=== PATIENT | female | born 1995 | race Caucasian/White ===

== ENCOUNTER 2019-01-17 20:57 | Emergency (ER) | payer OTHER ==
[~2019-01-17] VITALS: Ht 162.6 cm; Wt 59.1 kg
[2019-01-17 21:02] VITALS: BP 115/74
--- NOTE | 2019-01-17 21:06 | NUR ---
TO LOBBY, VSS.
--- NOTE | 2019-01-17 21:25 | NUR ---
PT GOING TO ULTRASOUND
[2019-01-17 21:39] LABS: BASOPHILS % (AUTO) 0.2 % (0.0-2.0); EOSINOPHILS # (AUTO) 1.1 K/uL (0-0.4); HEMATOCRIT 37.9 % (36-48); HEMOGLOBIN 12.4 g/dL (12.0-16.0); LYMPHOCYTES # (AUTO) 1.5 K/uL (2.5-16.5); LYMPHOCYTES % (AUTO) 11.7 % (20.5-51.1); MEAN CORPUSCULAR HEMOGLOBIN 31 pg (27-31); MEAN CORPUSCULAR HGB CONC 33 g/dL (33-37); MEAN CORPUSCULAR VOLUME 94.1 fL (80-94); MONOCYTES # (AUTO) 0.6 K/uL (0.8-1.0); MONOCYTES % (AUTO) 4.8 % (1.7-9.3); NEUTROPHILS # (AUTO) 9.3 K/uL (1.8-7.7); NEUTROPHILS % (AUTO) 74.3 % (42.2-75.2); PLATELET COUNT (AUTO) 269 K/uL (140-450); RED BLOOD CELL COUNT(AUTO) 4.03 MIL/uL (4.20-5.40); RED CELL DISTRIBUTION WIDTH 13.8 % (11.6-13.7); WHITE BLOOD COUNT (AUTO) 12.6 K/uL (4.8-10.8)
--- NOTE | 2019-01-17 21:46 | NUR ---
PT IN ULTRASOUND AT THIS TIME, GOING TO ER BED 2
--- NOTE | 2019-01-17 21:51 | NUR ---
PT RETURN FROM ULTRASOUND TO ER BED 2
--- NOTE | 2019-01-17 21:55 | NUR ---
PT BIB BOYFRIEND C/O OF ABD CRAMPING. PT STATES ABD CRAMPING STARTED THIS MORNING, 10/10 INTERMITTENT CRAMPING PAIN, RADIATES TO LOWER BACK. DENIES TRAUMA. PT STATES NO VAGINAL BLEEDING, OR DISCHARGE; DENIES N/V/D, SOB, CP OR LOC. BOWEL SOUNDS ACTIVE X4 QUAD. LMP: 10/31/19, PT STATES TO BE 11 WKS AND HAS ACTIVE PRENATEL CARE. PMH: DENIES RX: DENIES
[2019-01-17 22:12] LABS: APPEARANCE,URINE CLEAR (CLEAR); BILIRUBIN,URINE NEGATIVE (NEGATIVE); BLOOD, URINE NEGATIVE (NEGATIVE); LEUKOCYTE ESTERASE ,URINE NEGATIVE (NEGATIVE); NITRITE, URINE NEGATIVE (NEGATIVE); UGLUCOSE NEGATIVE (NEGATIVE)
[2019-01-17 22:23] LABS: COLOR,URINE STRAW (YELLOW)
--- NOTE | 2019-01-18 | NUR ---
Dr. Riojas evaluating patient at bedside.
[2019-01-18 00:10] VITALS: BP 118/78
--- NOTE | 2019-01-18 00:10 | NUR ---
Patient discharged with v/s stable. Written and verbal after care instructions given and explained. Patient verbalized understanding. Ambulatory with steady gait. All questions addressed prior to discharge. Advised to follow up with PMD.
== END 2019-01-18 00:10 | disposition home or self-care (01) ==
LOC: MED 20:57
DX: O20.0 Threatened abortion (principal); Z3A.11 11 weeks gestation of pregnancy; Z88.2 Allergy status to sulfonamides
CPT/HCPCS: 36415; 76815; 81002; 81025; 84702; 85025; 86900; 86901; 99284; Q0092

== ENCOUNTER 2019-03-29 08:40 | Observation (INO) | payer OTHER ==
[~2019-03-29] VITALS: Ht 162.6 cm; Wt 61.0 kg
--- NOTE | 2019-03-29 08:45 | NUR ---
PATIENT AMBULATED TO BED 7.
[2019-03-29 08:50] VITALS: BP 125/70
--- NOTE | 2019-03-29 08:50 | NUR ---
21 WKS FEMALE BIB SELF W/ CO DIARRHEA AND LOWER ABDOMINAL CRAMPING PAIN 10/ SINCE 0500 THIS MORNING. DENIES VAGINAL BLEEDING. A0 LMP 10/31/18. PATIENT POSITIONED FOR COMFORT; HOB ELEVATED; BEDRAILS UP X1; BED DOWN. ER MD MADE AWARE OF PT STATUS.
--- NOTE | 2019-03-29 08:56 | NUR ---
UA DONE, SENT TO LAB
[2019-03-29] MEDS ORDERED: NACL 0.9% 1,000 ML IV ONE (09:25)
--- NOTE | 2019-03-29 09:34 | NUR ---
IV 20 GA RT HAND, BLOOD SENT TO LAB-PT [facility]
[2019-03-29 09:46] LABS: BASOPHILS % (AUTO) 0.3 % (0.0-2.0); EOSINOPHILS % (AUTO) 11.5 % (0.0-4.0); HEMATOCRIT 34.8 % (36-48); HEMOGLOBIN 11.8 g/dL (12.0-16.0); LYMPHOCYTES # (AUTO) 1.1 K/uL (2.5-16.5); LYMPHOCYTES % (AUTO) 12.2 % (20.5-51.1); MEAN CORPUSCULAR HEMOGLOBIN 33 pg (27-31); MEAN CORPUSCULAR HGB CONC 34 g/dL (33-37); MEAN CORPUSCULAR VOLUME 96.2 fL (80-94); MONOCYTES # (AUTO) 0.6 K/uL (0.8-1.0); MONOCYTES % (AUTO) 7.1 % (1.7-9.3); NEUTROPHILS # (AUTO) 6.2 K/uL (1.8-7.7); NEUTROPHILS % (AUTO) 68.9 % (42.2-75.2); PLATELET COUNT (AUTO) 263 K/uL (140-450); RED BLOOD CELL COUNT(AUTO) 3.61 MIL/uL (4.20-5.40); RED CELL DISTRIBUTION WIDTH 13.9 % (11.6-13.7); WHITE BLOOD COUNT (AUTO) 9.1 K/uL (4.8-10.8)
[2019-03-29 09:47] LABS: BILIRUBIN,URINE NEGATIVE (NEGATIVE); BLOOD, URINE NEGATIVE (NEGATIVE); COLOR,URINE ORANGE (YELLOW); LEUKOCYTE ESTERASE ,URINE NEGATIVE (NEGATIVE); NITRITE, URINE NEGATIVE (NEGATIVE); UGLUCOSE NEGATIVE (NEGATIVE)
[2019-03-29 09:52] LABS: ANION GAP 13.8 (8-16); CARBON DIOXIDE 20.9 mmol/L (21-32); CREATININE 0.5 mg/dL (0.6-1.3); POTASSIUM 3.7 mmol/L (3.5-5.1)
[2019-03-29 09:57] LABS: TOTAL BILIRUBIN 0.2 mg/dL (0.0-1.0)
[2019-03-29 09:58] LABS: APPEARANCE,URINE SLIGHTLY HAZY (CLEAR); RBC,URINE 0-5 /HPF (0-5); WBC,URINE 0-5 /HPF (0-5)
--- NOTE | 2019-03-29 10:15 | NUR ---
PT AMB TO [facility] W/O ASST. PT ABD PAIN 2, NO VAG BLEEDING/CRAMPING AT THIS TIME. NSR W/O ECT. VVS PT STABLE.
--- NOTE | 2019-03-29 11:35 | NUR ---
Patient discharged with v/s stable. Written and verbal after care instructions given and explained. Patient alert, oriented and verbalized understanding of instructions. Wheel Chair Assisted with steady gait. All questions addressed prior to discharge. ID band removed. Patient advised to follow up with PMD.NO Rx given. Patient educated on indication of medication including possible reaction and side effects. Opportunity to ask questions provided and answered.
--- NOTE | 2019-03-29 11:37 | NUR ---
PT SENT TO L&D VIA W/C WITH ANISHA MENG. REPORT GIVEN TO L&D RN.
[2019-03-29 12:07] VITALS: BP 108/59
[2019-03-29] MEDS ORDERED: VITA1TAB44 PO (12:11)
[2019-03-29] MEDS ORDERED: PNV1TABL8 PO (12:12)
== END 2019-03-29 13:42 | disposition left against medical advice (07) ==
LOC: MED 08:40 → MLD 11:34
PROVIDERS: ADMIT Obstetrics & Gynecology; ATTEND Obstetrics & Gynecology
DX: O26.892 Other specified pregnancy related conditions, second trimester (principal); R19.7 Diarrhea, unspecified; R10.30 Lower abdominal pain, unspecified; Z3A.21 21 weeks gestation of pregnancy
CPT/HCPCS: 36415; 80053; 81001; 81003; 85025; 96360; 99283; G0378; J7030

== ENCOUNTER 2019-07-31 10:25 | Inpatient (IN) | payer OTHER ==
[~2019-07-31] VITALS: Ht 162.6 cm; Wt 72.6 kg
[~2019-07-31 10:25] MED LIST: PNV1TABL8 PO; VITA1TAB44 PO
[2019-07-31] MEDS ORDERED: LACTATED RINGERS 1,000 ML IV SCH (10:48)
[2019-07-31] MEDS ORDERED: CITRIC ACID/SODIUM CITRATE 30 ML UDC PO SCH (10:50)
[2019-07-31 12:19] LABS: APPEARANCE,URINE CLEAR (CLEAR); BILIRUBIN,URINE NEGATIVE (NEGATIVE); BLOOD, URINE NEGATIVE (NEGATIVE); COLOR,URINE YELLOW (YELLOW); LEUKOCYTE ESTERASE ,URINE NEGATIVE (NEGATIVE); NITRITE, URINE NEGATIVE (NEGATIVE); PH,URINE 6.5 (5.0-9.0); UGLUCOSE NEGATIVE (NEGATIVE)
[2019-07-31] MEDS ORDERED: ONDANSETRON 4 MG/2 ML VIAL ONE (12:40)
[2019-07-31] MEDS ORDERED: MIDAZOLAM 2 MG/2 ML VIAL ONE (12:55)
[2019-07-31] MEDS ORDERED: MORPHINE PRES FREE 10 MG/10 ML AMP IV ONE (12:55)
[2019-07-31 13:17] LABS: BASOPHILS % (AUTO) 0.5 % (0.0-2.0); EOSINOPHILS # (AUTO) 0.4 K/uL (0-0.4); EOSINOPHILS % (AUTO) 6.4 % (0.0-4.0); HEMATOCRIT 36.7 % (36-48); LYMPHOCYTES % (AUTO) 13.8 % (20.5-51.1); MEAN CORPUSCULAR HEMOGLOBIN 32 pg (27-31); MEAN CORPUSCULAR HGB CONC 33 g/dL (33-37); MEAN CORPUSCULAR VOLUME 97.9 fL (80-94); MONOCYTES # (AUTO) 0.4 K/uL (0.8-1.0); MONOCYTES % (AUTO) 6.3 % (1.7-9.3); NEUTROPHILS # (AUTO) 5.1 K/uL (1.8-7.7); PLATELET COUNT (AUTO) 245 K/uL (140-450); RED BLOOD CELL COUNT(AUTO) 3.75 MIL/uL (4.20-5.40); RED CELL DISTRIBUTION WIDTH 13.7 % (11.6-13.7)
[2019-07-31 13:25] VITALS: BP 117/71
[2019-07-31 13:28] LABS: ALBUMIN 2.4 g/dL (3.4-5.0); ANION GAP 13.9 (8-16); CARBON DIOXIDE 23.1 mmol/L (21-32); CREATININE 0.5 mg/dL (0.6-1.3); TOTAL BILIRUBIN 0.3 mg/dL (0.0-1.0)
[2019-07-31] MEDS ORDERED: OXYTOCIN 20 UNITS/LR PREMIX 1,000 ML IV ONE (14:09)
[2019-07-31] MEDS ORDERED: OXYTOCIN 20 UNITS in DEXT 5% / LACT RING 1,000 ML IV SCH (14:18)
[2019-07-31] MEDS ORDERED: SODIUM PHOSPHATE 118 ML ENEM RC PRN (14:20)
[2019-07-31] MEDS ORDERED: MEPERIDINE 25 MG/ML SYR IVP PRN (14:20)
[2019-07-31] MEDS ORDERED: ONDANSETRON 4 MG/2 ML VIAL IVP PRN ×2 (14:20)
[2019-07-31] MEDS ORDERED: MEASLES, MUMPS, AND RUBELLA 1 VIAL SQVAC PRN (14:20)
[2019-07-31] MEDS ORDERED: diphenhydrAMINE 50 MG/ML VIAL IVP PRN ×2 (14:20)
[2019-07-31] MEDS ORDERED: METHYLERGONOVINE 0.2 MG/ML AMP IM PRN (14:20)
[2019-07-31] MEDS ORDERED: NALOXONE 0.4 MG/ML VIAL IVP PRN ×3 (14:20)
[2019-07-31] MEDS ORDERED: NALBUPHINE 10 MG/ML AMP IVP PRN (14:20)
[2019-07-31] MEDS ORDERED: HYDROmorphone 1 MG/ML AMP IVP PRN (14:20)
[2019-07-31] MEDS ORDERED: IBUPROFEN 600 MG TAB PO PRN (14:30)
[2019-07-31] MEDS: KETOROLAC 30 MG/ML VIAL IM/IVP SCH (18:09)
[2019-07-31] MEDS: BISACODYL 5 MG TABEC PO SCH (21:00)
[2019-07-31] MEDS: SENNA 8.6 MG TAB PO SCH (21:00)
[2019-08-01] MEDS: KETOROLAC 30 MG/ML VIAL IM/IVP SCH ×3 (00:08→11:58)
[2019-08-01] MEDS ORDERED: OXYTOCIN 20 UNITS/LR PREMIX 1,000 ML IV ONE ×2 (01:22→09:46)
[2019-08-01] MEDS: OXYTOCIN 20 UNITS in LACTATED RINGERS 1,000 ML IV SCH ×2 (02:00→09:51)
[2019-08-01 06:40] LABS: BASOPHILS % (AUTO) 0.4 % (0.0-2.0); EOSINOPHILS # (AUTO) 0.3 K/uL (0-0.4); EOSINOPHILS % (AUTO) 2.4 % (0.0-4.0); HEMATOCRIT 32.2 % (36-48); HEMOGLOBIN 10.6 g/dL (12.0-16.0); LYMPHOCYTES # (AUTO) 1.3 K/uL (2.5-16.5); LYMPHOCYTES % (AUTO) 12.1 % (20.5-51.1); MEAN CORPUSCULAR HEMOGLOBIN 32 pg (27-31); MEAN CORPUSCULAR HGB CONC 33 g/dL (33-37); MEAN CORPUSCULAR VOLUME 97.6 fL (80-94); MONOCYTES # (AUTO) 0.9 K/uL (0.8-1.0); MONOCYTES % (AUTO) 8.4 % (1.7-9.3); NEUTROPHILS # (AUTO) 8.1 K/uL (1.8-7.7); NEUTROPHILS % (AUTO) 76.7 % (42.2-75.2); PLATELET COUNT (AUTO) 213 K/uL (140-450); RED CELL DISTRIBUTION WIDTH 13.6 % (11.6-13.7); WHITE BLOOD COUNT (AUTO) 10.6 K/uL (4.8-10.8)
--- NOTE | 2019-08-01 08:21 | NUR ---
PATIENT HAS BEEN SCREENED AND CATEGORIZED LOW NUTRITION RISK. PATIENT WILL BE SEEN WITHIN 7 DAYS OF ADMISSION. 08/07/[address]
[2019-08-01] MEDS: BISACODYL 5 MG TABEC PO SCH ×2 (09:33→21:03)
[2019-08-01] MEDS ORDERED: OXYTOCIN 20 UNITS in LACTATED RINGERS 1,000 ML IV SCH (14:18)
[2019-08-01] MEDS: SIMETHICONE 80 MG TAB.CHEW PO PRN (17:49)
[2019-08-01] MEDS: SENNA 8.6 MG TAB PO SCH (21:05)
[2019-08-02] MEDS: oxyCODONE/APAP 5/325 MG 1 TAB TAB PO PRN (02:10)
[2019-08-02] MEDS: SIMETHICONE 80 MG TAB.CHEW PO PRN ×2 (08:44→13:04)
[2019-08-02] MEDS: BISACODYL 5 MG TABEC PO SCH (08:44)
[2019-08-02] MEDS: SENNA 8.6 MG TAB PO SCH (21:00)
[2019-08-03] MEDS: oxyCODONE/APAP 5/325 MG 1 TAB TAB PO PRN (02:28)
== END 2019-08-03 19:45 | disposition home or self-care (01) | DRG 540 ==
LOC: MLD 10:25 → MFCC 14:32
PROVIDERS: ADMIT Obstetrics & Gynecology; ATTEND Obstetrics & Gynecology
PROC: 10D00Z1 Extraction of Products of Conception, Low, Open Approach (ICD-10-PCS; principal; 2019-08-02)
DX: O41.03X0 Oligohydramnios, third trimester, not applicable or unspecified (principal); R71.0 Precipitous drop in hematocrit; O77.0 Labor and delivery complicated by meconium in amniotic fluid; O34.211 Maternal care for low transverse scar from previous cesarean delivery; Z37.0 Single live birth; Z3A.39 39 weeks gestation of pregnancy; Z88.2 Allergy status to sulfonamides
CPT/HCPCS: 36415; 80053; 81003; 85025; 86592; 86886; 86900; 86901; J0690; J1885; J2250; J2270; J2405; J2590; J7060; J7120